=== PATIENT | male | born 1950 | race Caucasian/White ===

== ENCOUNTER → 2016-10-17 | Outpatient (CLI) | payer MEDICARE ==
[~2016-10-17] MED LIST: ANORO ELLIPTA1 EACH INH; BUPROPION HCL150 M1 PO; CRESTOR10 MG PO; CYMBALTA60 MG PO; DILTIAZEM 24HR240 M1 PO; FENOFIBRIC ACI135 MG PO; FLEXERIL 10 MG10 MG PO; GLUCOPHAGE500 MG PO; HUMALOG MI100 UNITS/ SQ; ISOSORBIDE DINI30 MG PO; NORCO 10-325 T1 EACH PO; PLAVIX 75 MG TA75 MG PO; PRINIVIL20 MG PO; PRINIVIL5 MG PO; PROTONIX 40 MG40 M1 PO; TOPROL XL 25 MG25 MG PO; TOUJEO SQ; TRAZODONE HCL100 MG PO; VENTOLIN/PROVE0.5 ML INH
== END ==
LOC: RAD 07:57
DX: R13.14 Dysphagia, pharyngoesophageal phase (principal); K22.2 Esophageal obstruction
CPT/HCPCS: 74220

== ENCOUNTER 2020-06-10 21:58 | Emergency (ER) | payer MEDICARE ==
[~2020-06-10 21:58] MED LIST changes: +ALBUTEROL2.5 MG/3 M NEB; +ANTABUSE500 MG PO; +DISULFIRAM250 MG PO; +IMDUR ER TAB 3030 MG PO; +LOPRESSOR 50 MG50 MG PO; +MEDROL4 MG PO; +THERAGRAN M TAB1 EA PO; +TOPROL XL50 MG PO; +VENTOLIN HFA 66.7 GM INH; -VENTOLIN/PROVE0.5 ML INH; +VIBRAMYCIN100 MG PO; +ZESTRIL30 MG PO
[2020-06-10 22:33] LABS: HEMOGLOBIN 13.1 gm/dl (14.0-17.5); RED BLOOD COUNT 5.01 M/UL (4.20-5.50); WHITE BLOOD COUNT 11.4 K/UL (4.5-11.0)
[2020-06-10 23:02] LABS: BUN/CREATININE RATIO 13 (0-10)
[2020-06-11] MEDS ORDERED: LASIX TAB 20 MG20 MG PO (02:36)
== END 2020-06-11 02:50 | disposition home or self-care (01) ==
LOC: ER1 21:58
PROVIDERS: Student in an Organized Health Care Education/Training Program
DX: E87.70 Fluid overload, unspecified (principal); J44.9 Chronic obstructive pulmonary disease, unspecified; I25.10 Atherosclerotic heart disease of native coronary artery without angina pectoris; Z20.822 Contact with and (suspected) exposure to COVID-19; E11.9 Type 2 diabetes mellitus without complications; I10 Essential (primary) hypertension; Z79.899 Other long term (current) drug therapy
CPT/HCPCS: 0240U; 36600; 71045; 80053; 81001; 82550; 82553; 82803; 83874; 83880; 84484; 85025; 85379; 93005; 94664; 96374; 99285; J1940

== ENCOUNTER → 2020-07-09 | Outpatient (CLI) | payer MEDICARE ==
[~2020-07-09] MED LIST changes: +LASIX TAB 20 MG20 MG PO
== END ==
LOC: ECHO 06-02 11:00
DX: I25.10 Atherosclerotic heart disease of native coronary artery without angina pectoris (principal); I07.1 Rheumatic tricuspid insufficiency
CPT/HCPCS: ECHO; 93306

== ENCOUNTER 2020-12-16 18:46 | Emergency (ER) | payer MEDICARE, MEDICAID ==
[2020-12-16 19:43] LABS: HEMOGLOBIN 11.2 gm/dl (14.0-17.5); RED BLOOD COUNT 4.57 M/UL (4.20-5.50); WHITE BLOOD COUNT 8.9 K/UL (4.5-11.0)
[2020-12-16 20:03] LABS: BUN/CREATININE RATIO 16 (0-10)
[2020-12-16] MEDS ORDERED: PREDNISONE 20 M20 MG PO (22:21)
[2020-12-16] MEDS ORDERED: DOXYCYCLINE HY100 M2 PO (22:21)
[2020-12-16] MEDS ORDERED: MOTION SICKNESS25 M2 PO (22:21)
[2020-12-17] MEDS ORDERED: VISTARIL25 MG PO (22:57)
[2020-12-17] MEDS ORDERED: ANORO ELLIPTA1 EACH INH (22:58)
[2020-12-17] MEDS ORDERED: LISINOPRIL20 MG PO (23:00)
== END 2020-12-16 22:33 | disposition home or self-care (01) ==
LOC: ER1 18:46
PROVIDERS: Physician Assistant
DX: J44.1 Chronic obstructive pulmonary disease with (acute) exacerbation (principal); Z20.822 Contact with and (suspected) exposure to COVID-19; E11.9 Type 2 diabetes mellitus without complications; I10 Essential (primary) hypertension; F17.200 Nicotine dependence, unspecified, uncomplicated; H61.21 Impacted cerumen, right ear; J18.9 Pneumonia, unspecified organism
CPT/HCPCS: 36600; 70450; 71045; 80053; 81001; 82550; 82553; 82803; 83874; 84484; 85025; 87086; 93005; 94640; 94664; 96374; 99284; J2930; U0002

== ENCOUNTER 2020-12-17 15:44 | Observation (INO) | payer MEDICARE, MEDICAID ==
[~2020-12-17] VITALS: Ht 188 cm; Wt 113.4 kg
[~2020-12-17 15:44] MED LIST changes: +DOXYCYCLINE HY100 M2 PO; +MOTION SICKNESS25 M2 PO; +PREDNISONE 20 M20 MG PO
[2020-12-17 16:51] LABS: HEMOGLOBIN 11.3 gm/dl (14.0-17.5); RED BLOOD COUNT 4.53 M/UL (4.20-5.50)
[2020-12-17 16:53] LABS: WHITE BLOOD COUNT 17.8 K/UL (4.5-11.0)
[2020-12-17 17:28] LABS: BUN/CREATININE RATIO 24 (0-10)
[2020-12-17] MEDS ORDERED: VISTARIL25 MG PO (22:57)
[2020-12-17] MEDS ORDERED: ANORO ELLIPTA1 EACH INH (22:58)
[2020-12-17] MEDS ORDERED: LISINOPRIL20 MG PO (23:00)
[2020-12-18 07:33] LABS: BUN/CREATININE RATIO 26 (0-10)
[2020-12-18 07:36] LABS: HEMOGLOBIN 10.3 gm/dl (14.0-17.5); RED BLOOD COUNT 4.25 M/UL (4.20-5.50)
[2020-12-18 07:37] LABS: WHITE BLOOD COUNT 12.8 K/UL (4.5-11.0)
--- NOTE | 2020-12-18 15:17 | NUR ---
PATIENT BLOOD SUGAR OVER 400. MD AWARE INSULIN GIVEN WILL RECHECK IN 30 MINUTES
--- NOTE | 2020-12-18 16:40 | NUR ---
CALLED MD ABOUT PATIENT BLOOD SUGAR INCREASES. DR MARTINEZ MADE MEDICATION CHANGES AND REINFORCE PATIENT STRICT DIABETIC DIET. INFORM MD PATIENT HAS BEEN EATING CAKES FROM THE VENDING MACHINE GIVEN TO HIM BY FAMILY. EDUCATE PATIENT ON THE RISK OF EATING SWEETS, PATIENT VERBALIZED UNDERSTANDING.
[2020-12-19] MEDS ORDERED: OMNICEF 300 MG300 MG PO (11:35)
[2020-12-19 12:47] LABS: HEMOGLOBIN 10.2 gm/dl (14.0-17.5); RED BLOOD COUNT 4.13 M/UL (4.20-5.50); WHITE BLOOD COUNT 14.1 K/UL (4.5-11.0)
== END 2020-12-19 18:00 | disposition home or self-care (01) ==
LOC: ER1 15:44 → CDU 20:27 → MED SURG 4 20:27
PROVIDERS: Internal Medicine; Preventive Medicine Occupational Medicine; ADMIT Internal Medicine
DX: J18.9 Pneumonia, unspecified organism (principal); J44.1 Chronic obstructive pulmonary disease with (acute) exacerbation; E11.65 Type 2 diabetes mellitus with hyperglycemia; E83.42 Hypomagnesemia; I25.10 Atherosclerotic heart disease of native coronary artery without angina pectoris; E87.1 Hypo-osmolality and hyponatremia; E66.01 Morbid (severe) obesity due to excess calories; J96.10 Chronic respiratory failure, unspecified whether with hypoxia or hypercapnia; I10 Essential (primary) hypertension; Z79.4 Long term (current) use of insulin; Z79.02 Long term (current) use of antithrombotics/antiplatelets; Z79.899 Other long term (current) drug therapy; Z20.822 Contact with and (suspected) exposure to COVID-19
CPT/HCPCS: 36415; 36600; 71045; 80048; 80053; 80307; 81001; 82550; 82553; 82803; 82962; 83605; 83690; 83735; 83874; 83880; 84484; 85025; 85652; 86140; 87086; 93005; 94640; 94664; 94760; 96372; 96374; 96375; 96376; 99284; G0378; J0456; J0696; J1650; J2543; J2920; J2930; J3475; J7030; Q0177; U0002

== ENCOUNTER 2020-12-21 15:30 | Emergency (ER) | payer MEDICARE ==
[~2020-12-21 15:30] MED LIST changes: +LISINOPRIL20 MG PO; +OMNICEF 300 MG300 MG PO; +VISTARIL25 MG PO
== END 2020-12-21 15:46 | disposition left against medical advice (07) ==
LOC: ER1 15:30
DX: Z53.21 Procedure and treatment not carried out due to patient leaving prior to being seen by health care provider (principal)

== ENCOUNTER 2021-03-08 20:25 | Emergency (ER) | payer MEDICARE | END 2021-03-08 20:39 | disposition left against medical advice (07) | LOC: ER1 20:25 | DX: R53.83 Other fatigue (principal); E11.9 Type 2 diabetes mellitus without complications; Z79.4 Long term (current) use of insulin; E78.5 Hyperlipidemia, unspecified; J44.9 Chronic obstructive pulmonary disease, unspecified; I10 Essential (primary) hypertension | CPT/HCPCS: 99282 ==

== ENCOUNTER → 2021-03-14 | Outpatient (CLI) | payer MEDICARE | LOC: HEART 5 14:51 | DX: J44.9 Chronic obstructive pulmonary disease, unspecified (principal) | CPT/HCPCS: 94060; 94729 ==

== ENCOUNTER → 2021-04-01 | Outpatient (CLI) | payer MEDICARE | LOC: KOH-I 03-29 13:30 | DX: J43.9 Emphysema, unspecified (principal); J60 Coalworker's pneumoconiosis | CPT/HCPCS: 71250 ==

== ENCOUNTER → 2021-08-17 | Outpatient (CLI) | payer MEDICARE | LOC: KOH-I 09:57 | DX: R60.0 Localized edema (principal); N18.30 Chronic kidney disease, stage 3 unspecified; K76.9 Liver disease, unspecified; N28.1 Cyst of kidney, acquired | CPT/HCPCS: 76700 ==